=== PATIENT | female | born 2000 | race Two or more races ===

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

== ENCOUNTER 2020-08-08 20:13 | Emergency (ER) | payer SELFPAY ==
[~2020-08-08] VITALS: Ht 165.1 cm; Wt 55.0 kg
[2020-08-08 21:11] LABS: BILIRUBIN,URINE NEGATIVE (NEG); CLARITY,URINE CLOUDY; COLOR,URINE YELLOW; NITRITE,URINE NEGATIVE (NEG); PROTEIN,URINE NEGATIVE (NEG-TRACE)
[2020-08-08 21:18] LABS: BACTERIA,URINE FEW /HPF (0-FEW)
[2020-08-08 21:19] LABS: AMORPHOUS SEDIMENT,UR PRESENT /HPF
[2020-08-08 22:06] LABS: BASO # 0.1 x10^3/uL (0.0-0.2); BASO % 1 % (0-3); EOS # 0.2 x10^3/uL (0.0-0.7); EOS % 2 % (0-3); HEMATOCRIT 39.6 % (36.0-47.0); HEMOGLOBIN 13.6 g/dL (12.0-15.5); LYMPH % 24 % (24-48); MEAN CORPUSCULAR HEMOGLOBIN 30 pg (25-35); MEAN CORPUSCULAR HGB CONC 34 g/dL (31-37); MEAN CORPUSCULAR VOLUME 88 fL (79-100); MONO # 0.6 x10^3/uL (0.0-1.1); MONO % 7 % (0-9); NEUT # 5.6 x10^3/uL (1.8-7.7); NEUT % 66 % (31-73); PLATELET COUNT 210 x10^3/uL (140-400); RED BLOOD COUNT 4.51 x10^6/uL (3.50-5.40); RED CELL DISTRIBUTION WIDTH 12.4 % (11.5-14.5); WHITE BLOOD COUNT 8.5 x10^3/uL (4.0-11.0)
[2020-08-08 22:22] LABS: CALCIUM 8.6 mg/dL (8.5-10.1); CREATININE 0.7 mg/dL (0.6-1.0); GFR 105.6; POTASSIUM 3.8 mmol/L (3.5-5.1)
--- NOTE | 2020-08-08 22:26 | ED.ADGEN ---
Past Medical History Past Medical History: No Pertinent History Past Surgical History: No Surgical History Smoking Status: Never Smoker Alcohol Use: None Drug Use: None General Adult EDM: Chief Complaint: ABDOMINAL PAIN HPI: HPI: Patient is a 20 year old bilateral lower abdominal pain for 1 month. Patient states the pain has been getting worse. Is been seen by her primary care hospital stay for miscarriage. Patient has a positive test 1 month ago followed by bleeding. She then had another episode of 5 days of vaginal bleeding starting July 20 which stops her menstrual cycle returning. Patient is a G2, P1. Denies any fevers, abdominal distention, history of ovarian cysts, dys uria, hematuria, vaginal bleeding or discharge, or dyspareunia. Patient states she was treated for urinary tract infection in May and completed her course of antibiotics. Review of Systems: Review of Systems: All other systems within normal limits except for as noted in the HPI Current Medications: Current Medications Medications (Trade) Dose Ordered Sig/Eliane Start Time Stop Time Status Last Admin Dose Admin Info (CONTRAST GIVEN -- Rx MONITORING) 1 each PRN DAILY PRN 08/08/20 23:00 08/10/20 22:59 Iohexol (Omnipaque 300 Mg/ml) 75 ml 1X ONCE 08/08/20 22:45 08/08/20 22:47 DC 08/08/20 23:10 75 ML Allergies: Allergies: Allergies Coded Allergies Type Severity Reaction Last Updated Verified No Known Drug Allergies 02/11/14 No Physical Exam: PE: Constitutional: Well developed, well nourished, no acute distress, non-toxic appearance. [] HENT: Normocephalic, atraumatic, bilateral external ears normal, nose normal. [] Eyes: PERRLA, conjunctiva normal, no discharge. [] Neck: No rigidity, supple, no stridor. [] Cardiovascular: Regular rate and rhythm, brisk cap refill [] Lungs & Thorax: Non labored symmetric respirations, no tachypnea or respiratory distress [] Abdomen: Soft, nondistended suprapubic tenderness without guarding or rebound. Skin: Warm, dry, no erythema, no rash. [] Back: Unremarkable Extremities: No deformities, range of motion grossly intact, no lower extremity edema [] Neurologic: Alert and oriented X 3, no focal deficits noted. [] Psychologic: Affect normal, judgement normal, mood normal. [] Current Patient Data: Labs: Laboratory Tests Test 08/08/20 21:00 08/08/20 21:09 08/08/20 21:55 Urine Collection Type Unknown Urine Color Yellow Urine Clarity Cloudy Urine pH 7.0 (<5.0-8.0) Urine Specific [place] >=1.030 (1.000-1.030) Urine Protein Negative mg/dL (NEG-TRACE) Urine Glucose (UA) Negative mg/dL (NEG) Urine Ketones (Stick) Negative mg/dL (NEG) Urine Blood Negative (NEG) Urine Nitrite Negative (NEG) Urine Bilirubin Negative (NEG) Urine Urobilinogen Dipstick 1.0 mg/dL (0.2 mg/dL) Urine Leukocyte Esterase Negative (NEG) Urine RBC 1-2 /HPF (0-2) Urine WBC 1-4 /HPF (0-4) Urine Squamous Epithelial Cells Mod /LPF Urine Amorphous Sediment Present /HPF Urine Bacteria Few /HPF (0-FEW) Urine Mucus Mod /LPF POC Urine HCG, Qualitative Hcg negative (Negative) White Blood Count 8.5 x10^3/uL (4.0-11.0) Red Blood Count 4.51 x10^6/uL (3.50-5.40) Hemoglobin 13.6 g/dL (12.0-15.5) Hematocrit 39.6 % (36.0-47.0) Mean Corpuscular Volume 88 fL (79-100) Mean Corpuscular Hemoglobin 30 pg (25-35) Mean Corpuscular Hemoglobin Concent 34 g/dL (31-37) Red Cell Distribution Width 12.4 % (11.5-14.5) Platelet Count 210 x10^3/uL (140-400) Neutrophils (%) (Auto) 66 % (31-73) Lymphocytes (%) (Auto) 24 % (24-48) Monocytes (%) (Auto) 7 % (0-9) Eosinophils (%) (Auto) 2 % (0-3) Basophils (%) (Auto) 1 % (0-3) Neutrophils # (Auto) 5.6 x10^3/uL (1.8-7.7) Lymphocytes # (Auto) 2.0 x10^3/uL (1.0-4.8) Monocytes # (Auto) 0.6 x10^3/uL (0.0-1.1) Eosinophils # (Auto) 0.2 x10^3/uL (0.0-0.7) Basophils # (Auto) 0.1 x10^3/uL (0.0-0.2) Maternal Serum HCG Beta Subunit < 1 mIU/mL (0-5) Sodium Level 141 mmol/L (136-145) Potassium Level 3.8 mmol/L (3.5-5.1) Chloride Level 105 mmol/L (98-107) Carbon Dioxide Level 26 mmol/L (21-32) Anion Gap 10 (6-14) Blood Urea Nitrogen 11 mg/dL (7-20) Creatinine 0.7 mg/dL (0.6-1.0) Estimated GFR (Cockcroft-Gault) 105.6 BUN/Creatinine Ratio 16 (6-20) Glucose Level 89 mg/dL (70-99) Calcium Level 8.6 mg/dL (8.5-10.1) Total Bilirubin 0.5 mg/dL (0.2-1.0) Aspartate Amino Transferase (AST) 13 U/L (15-37) L Alanine Aminotransferase (ALT) 18 U/L (14-59) Alkaline Phosphatase 60 U/L (46-116) Total Protein 7.4 g/dL (6.4-8.2) Albumin 4.3 g/dL (3.4-5.0) Albumin/Globulin Ratio 1.4 (1.0-1.7) Laboratory Tests 08/08/20 21:55 Laboratory Tests 08/08/20 21:55 Microbiology 08/08/20 Wet Prep - Final, Complete RUN DATE: 08/09/20 [facility] LAB *LIVE* PAGE 1 RUN TIME: 26 Specimen Inquiry PATIENT: ANURADHA WILLIAM ACCT: [id number] LOC: LUIS ENRIQUE U: [id number] AGE/SX: ROOM: RE08/08/[address]: SUPRIYA ARCINIEGA MD : 2000 BED: DIS : STATUS: REG ER TLOC: SPEC #: [id number] VICTORINO: 08/08/20 STATUS: COMP REQ #: [id number] RECD: 08/08/[address]: SUPRIYA ARCINIEGA MD SOURCE: VAGINAL ENTR: 08/08/[address] [facility] [address]: KEN SCHUMACHER SPDESC: ORDERED: WET PREP COMMENTS: Has specimen been collected/obtained? Y Procedure Result WET PREP Final YEAST NONE SEEN TRICHOMONAS NONE SEEN CLUE CELLS NONE SEEN WBCS FEW SQUAMOUS EPS MANY Vital Signs: Vital Signs Date Time Temp Pulse Resp B/P (MAP) Pulse Ox O2 Delivery O2 Flow Rate FiO2 08/08/20 21:45 98.4 98 18 125/86 (99) 97 Room Air 98.4 EKG: EKG: [] Heart Score: C/O Chest Pain: No Risk Factors: Risk Factors: DM, Current or recent (<one month) smoker, HTN, HLP, family history of CAD, obesity. Risk Scores: Score 0 - 3: 2.5% MACE over next 6 weeks - Discharge Home Score 4 - 6: 20.3% MACE over next 6 weeks - Admit for Clinical Observation Score 7 - 10: 72.7% MACE over next 6 weeks - Early Invasive Strategies Radiology/Procedures: Radiology/Procedures: CT OF THE ABDOMEN AND PELVIS WITH IV CONTRAST. History: Reason: low abd pain: Comparison:None. Procedure: Contiguous axial images of the abdomen and pelvis were performed after the ad ministration of 75 cc of Omni 300 IV contrast. Oral contrast: No. Findings: The gallbladder is normal. The appendix is normal. There is an enhancing collapsing cyst in the right ovary. There is a short segment of moderate wall thickening in the small bowel in the left lower quadrant of the abdomen image #44. Liver: Unremarkable Spleen: Unremarkable Pancreas: Unremarkable Adrenal Glands: Unremarkable Kidneys: Mild prominence of the left renal pelvis is likely an extrarenal pelvis. There is no mass or lymphadenopathy. There is no free air. There is no free fluid. The urinary bladder appears normal. Impression: 1. Moderate small bowel wall thickening on the left could be inflammatory or infectious enteritis. 2. Collapsing cyst right ovary. This assumes the patient is not . [] Course & Med Decision Making: Course & Med Decision Making Pertinent Labs and Imaging studies reviewed. (See chart for details) [] Dragon Disclaimer: Dragon Disclaimer: This electronic medical record was generated, in whole or in part, using a voice recognition dictation system. Departure Departure Impression: Primary Impression: Abdominal pain Additional Impression: Ovarian cyst Disposition: HOME / SELF CARE / HOMELESS Condition: STABLE Referrals: NO PCP (PCP) Patient Instructions: Ovarian Cyst Problem Qualifiers SUPRIYA ARCINIEGA MD August 08, 2020 22:26
[2020-08-08 22:27] LABS: ALBUMIN 4.3 g/dL (3.4-5.0); ALBUMIN/GLOBULIN RATIO 1.4 (1.0-1.7); TOTAL BILIRUBIN 0.5 mg/dL (0.2-1.0); TOTAL PROTEIN 7.4 g/dL (6.4-8.2)
[2020-08-08] MEDS ORDERED: CONTRAST GIVEN. MC PRN (23:00)
[2020-08-08] MEDS: IOHEXOL 300 MG/ML 100ML VIAL. IV ONE ×2 (23:01→23:10)
--- NOTE | 2020-08-08 23:25 | RAD ---
CT OF THE ABDOMEN AND PELVIS WITH IV CONTRAST. History: Reason: low abd pain: Comparison:None. Procedure: Contiguous axial images of the abdomen and pelvis were performed after the administration of 75 cc o f Omni 300 IV contrast. Oral contrast: No. Findings: The gallbladder is normal. The appendix is normal. There is an enhancing collapsing cyst in the right ovary. There is a short segment of moderate wall thickening in the small bowel in the left lower quadrant of the abdomen image #44. Liver: Unremarkable Spleen: Unremarkable Pancreas: Unremarkable Adrenal Glands: Unremarkable Kidneys: Mild prominence of the left renal pelvis is likely an extrarenal pelvis. There is no mass or lymphadenopathy. There is no free air. There is no free fluid. The urinary bladder appears normal. Impression: 1. Moderate small bowel wall thickening on the left could be inflammatory or infectious enteritis. 2. Collapsing cyst right ovary. This assumes the patient is not . End Impression PQRS Compliance Statement: One or more of the following individualized dose reduction techniques were utilized for this examinat ion: 1. Automated exposure control 2. Adjustment of the mA and/or kV according to patient size 3. Use of iterative reconstruction technique Electronically signed by: Clement Ma III, MD (08/08/2020 11:22 PM) [facility]
[2020-08-09 01:20] VITALS: BP 107/53
[2020-08-12 14:17] LABS: GC PROBE Negative (Negative)
== END 2020-08-09 01:30 | disposition home or self-care (01) ==
LOC: ER 20:13
DX: N83.201 Unspecified ovarian cyst, right side (principal)
CPT/HCPCS: 36415; 74177; 80053; 81001; 81025; 84702; 85025; 87491; 87591; 99285; Q0111; Q9967

== ENCOUNTER → 2020-08-13 | Emergency (ER) | payer SELFPAY ==
[2020-08-09 01:20] VITALS: BP 107/53
== END | disposition left against medical advice (07) ==
LOC: ER 15:06
DX: R33.9 Retention of urine, unspecified (principal); R10.9 Unspecified abdominal pain; Z53.21 Procedure and treatment not carried out due to patient leaving prior to being seen by health care provider